=== PATIENT | male | born 1945 | race Caucasian/White ===

== ENCOUNTER 2017-12-11 10:47 | Day surgery (SDC) | payer MEDICARE, OTHER ==
[2017-12-09 15:26] VITALS: BMI 26.4
[~2017-12-11 10:47] MED LIST: ALPRAZolam 0.25 MG TAB PO PRN; ASPIRIN 325 MG TAB PO ONE; NITROGLYCERIN SL TABS 0.4 MG TAB SUBLINGUAL PRN; SODIUM CHLORIDE 0.9% 1,000 ML in EMPTY BAG 1 BAG IV ONE
[2017-12-11 11:30] LABS: Basophils # (A) 0.1 k/uL (0-0.2); Basophils % (A) 1 %; Eosinophils # (A) 0.1 k/uL (0-0.7); Eosinophils % (A) 3 %; HCT 46.8 % (39.0-53.0); HGB 16.4 gm/dL (13.0-17.5); Lymphocytes # (A) 0.8 k/uL (1.0-4.8); Lymphocytes % (A) 19 %; MCV 85.8 fL (80.0-100.0); Mean Platelet Volume 8.7; Monocytes # (A) 0.4 k/uL (0-1.0); Monocytes % (A) 9 %; Neutrophils % (A) 66 %; Platelet Count 143 k/uL (150-450); RBC 5.46 m/uL (4.30-5.90); RDW 13.6 % (11.5-15.5); WBC 4.5 k/uL (3.8-10.6)
[2017-12-11 11:45] LABS: Potassium 4.4 mmol/L (3.5-5.1)
[2017-12-11] MEDS ORDERED: fentaNYL (PF) 50 MCG/ML 2 ML AMP ONE (11:48)
[2017-12-11] MEDS ORDERED: LIDOCAINE 2% INJ 20 MG/ML (20 ML MDV) ONE (11:48)
[2017-12-11] MEDS ORDERED: MIDAZOLAM 2 MG/2 ML VIAL ONE (11:48)
[2017-12-11] MEDS ORDERED: VERAPAMIL 2.5 MG/ML 2 ML AMP ONE (12:21)
[2017-12-11] MEDS ORDERED: fentaNYL (PF) 50 MCG/ML 2 ML AMP IV ONE (12:23)
[2017-12-11] MEDS ORDERED: MIDAZOLAM 2 MG/2 ML VIAL IV ONE (12:24)
[2017-12-11] MEDS ORDERED: LIDOCAINE 2% INJ 20 MG/ML SQ ONE (12:27)
[2017-12-11] MEDS ORDERED: VERAPAMIL SYRINGE (5 MG/10 ML) INTRAARTER ONE (12:34)
[2017-12-11] MEDS ORDERED: HEPARIN SODIUM 1,000 UN/ML (10ML VL) ONE (12:35)
[2017-12-11] MEDS ORDERED: HEPARIN SODIUM 1,000 UN/ML (10ML VL) IV ONE (12:38)
[2017-12-11] MEDS ORDERED: BIVALIRUDIN BOLUS 250 MG/50 ML IV ONE (13:18)
[2017-12-11] MEDS ORDERED: BIVALIRUDIN 250 MG in SODIUM CHLORIDE 0.9% 40 ML IV ONE (13:20)
[2017-12-11] MEDS: NITROGLYCERIN 1000MCG/10ML SYRINGE INTRACORON ONE ×2 (13:35→13:36)
[2017-12-11] MEDS ORDERED: CLOPIDOGREL 75 MG TAB ONE (13:38)
[2017-12-11] MEDS ORDERED: CLOPIDOGREL 75 MG TAB PO ONE (13:42)
[2017-12-11] MEDS ORDERED: IOHEXOL 350 MG/ML 125ML BOTTLE INJ ONE (13:52)
[2017-12-11] MEDS ORDERED: MAG HYDROX/AL HYDROX/SIMETH 30 ML CUP PO PRN (13:53)
[2017-12-11] MEDS ORDERED: RX INFO: IV CONTRAST WAS GIVEN 1 EACH MISC MISCELLANE PRN (13:53)
[2017-12-11] MEDS ORDERED: ZOLPIDEM 5 MG TAB PO PRN (13:53)
[2017-12-11] MEDS ORDERED: ATROPINE SULFATE 0.1 MG/ML 10ML SYRINGE IV PRN (13:53)
[2017-12-11] MEDS ORDERED: IBUPROFEN 800 MG TAB PO PRN (14:37)
[2017-12-11] MEDS: SODIUM CHLORIDE 0.9% 1,000 ML IV SCH (14:38)
[2017-12-11] MEDS: METOPROLOL TARTRATE 12.5 MG TAB PO SCH (20:52)
[2017-12-11] MEDS ORDERED: ATORVASTATIN 80 MG TAB PO SCH (21:00)
--- NOTE | 2017-12-11 22:31 | PTCA ---
PERCUTANEOUSTRANS CORORONARY ANGIOGRAPHY DATE OF SERVICE: 12/11/2017 PROCEDURE: Percutaneous transluminal coronary angioplasty and stenting of proximal circumflex coronary artery with a drug-eluting stent. PERFORMED BY: Dr. Kaitlyn Ramos ANESTHESIA: Moderate conscious sedation time was 25 minutes. Patient was given a combination of Versed and Benadryl and his oxygen saturation and vital signs were monitored very closely. CLINICAL INFORMATION: Mr. Dawson Coffman is a 72-year-old gentleman who was seen and evaluated by Dr. Patel with an abnormal stress test and underwent cardiac cath which revealed a subtotal or probably a chronic total occlusion of mid RCA with bridging collaterals with some competitive flow coming from circumflex. However, proximal circumflex was a nondominant vessel, but there was a long 70% to 80% lesion. He was advised intervention of the circumflex, and I would stage the RCA, which may be a technically difficult procedure, given the chronicity of the lesion. This was explained to the patient as well as the risks, benefits and options, and I then proceeded to perform the procedure. The patient had a cardiac cath from the right radial approach. PROCEDURE NOTE: The existing 6-Luxembourgish introducer in the right radial artery was used to perform the procedure. I used an XB3.5 guide catheter to cannulate the left coronary artery. With some curve on a BMW wire, I tried to advance into the circumflex vessel which came off at a 90-degree angle. I had some difficulty with the wire. I switched over to a run- through wire with a steep curve, and with this I was able to leave the wire in the distal circumflex marginal. Pre-dilatation was performed with a 2.25 caliber 20 mm long NC Trek balloon. I then deployed a 2.5 caliber 23 mm long Xience stent with excellent angiographic result. The patient had chest discomfort and also precordial ST depression. He received 600 mg of Plavix, and also Angiomax and bolus infusion was given. Excellent angiographic result without complication was achieved. The TR band was taken out as per protocol. Saturation in the fingers of the right hand was 94%. Results were discussed with the patient as well as his and son. He was sent to the room in stable condition. Excellent angiographic result without complication was achieved. MMODL / IJN: [id number] /
[2017-12-12] MEDS: SODIUM CHLORIDE 0.9% 1,000 ML IV SCH (05:29)
[2017-12-12 06:26] LABS: Basophils % (A) 1 %; Eosinophils # (A) 0.1 k/uL (0-0.7); Eosinophils % (A) 3 %; HCT 45.6 % (39.0-53.0); HGB 14.8 gm/dL (13.0-17.5); Lymphocytes # (A) 1.6 k/uL (1.0-4.8); Lymphocytes % (A) 33 %; MCH 28.3 pg (25.0-35.0); MCHC 32.5 g/dL (31.0-37.0); MCV 87.3 fL (80.0-100.0); Mean Platelet Volume 9.5; Monocytes # (A) 0.5 k/uL (0-1.0); Monocytes % (A) 11 %; Neutrophils # (A) 2.4 k/uL (1.3-7.7); Neutrophils % (A) 50 %; Platelet Count 139 k/uL (150-450); RBC 5.22 m/uL (4.30-5.90); RDW 13.7 % (11.5-15.5); WBC 4.8 k/uL (3.8-10.6)
[2017-12-12 06:49] LABS: Calcium 9.3 mg/dL (8.4-10.2); Potassium 4.5 mmol/L (3.5-5.1)
[2017-12-12 07:54] VITALS: BP 161/83; PULSE 52; RESP 14; TEMP 98.4
[2017-12-12] MEDS ORDERED: LISINOPRIL 5 MG TAB PO SCH (09:00)
[2017-12-12] MEDS ORDERED: ASPIRIN 81 MG PO SCH (09:00)
[2017-12-12] MEDS ORDERED: CLOPIDOGREL 75 MG TAB PO SCH (09:00)
[2017-12-12] MEDS ORDERED: ISOSORBIDE MONONITRATE ER 15 MG TAB PO SCH (09:00)
[2017-12-12] MEDS ORDERED: MAGNESIUM OXIDE 400 MG TAB PO SCH (09:00)
--- NOTE | 2017-12-12 09:00 | P.DS ---
Providers Date of admission: 12/11/2017 Attending physician: Tanisha Patel Consults: 12/11/17 13:53 Consult Physician Routine Consulting Provider: [facility] Consult Reason/Comments: Post Interventional patient Do you want consulting provider notified?: Already Contacted Primary care physician: Leticia Crespo - Discharge Diagnosis(es) (1) Crescendo angina Current Visit: Yes Status: Acute (2) Positive cardiac stress test Current Visit: Yes Status: Acute (3) Family history of ischemic heart disease Current Visit: Yes Status: Acute (4) Status post coronary artery stent placement Current Visit: Yes Status: Acute Hospital Course: This is 72-year-old gentleman was brought in for cardiac catheterization because of crescendo angina and positive stress test. He was found to have total occlusion of the or near total occlusion of the RCA with distal RCA being filled by collaterals. He also found to have significant disease involving the proximal circumflex. The LAD was free of occlusive disease. Patient had stent placement of the circumflex by Dr. ANNALISA Ramos. Patient tolerated the procedure well. The procedure was done from the right radial approach. The puncture sites seems to be stable without any hematoma. Radial pulses are intact. Patient is feeling much better. He is tolerating activity. His blood pressure is running high. I may start him on also on lisinopril along with beta kendall. Patient is started on aspirin and Plavix. Patient is instructed that he should not stop the dual antiplatelet agents for 1 year. Patient will be seen in the office in about one week time. Patient is given usual postintervention instructions Plan - Discharge Summary Discharge Rx Participant: No New Discharge Prescriptions: New Atorvastatin Calcium [Lipitor] 80 mg PO DAILY #90 tablet Clopidogrel Bisulfate [Plavix] 75 mg PO DAILY #90 tab No Action Isosorbide Mononitrate [Isosorbide Mononitrate ER] 15 mg PO DAILY Metoprolol Tartrate 12.5 mg PO BID Ascorbic Acid [Vitamin C] 1,000 mg PO DAILY Multivitamins, Thera [Multivitamin (formulary)] 1 tab PO DAILY Aspirin [Adult Low Dose Aspirin EC] 81 mg PO DAILY Magnesium Oxide 400 mg PO DAILY Ibuprofen [Motrin] 800 mg PO Q6HR PRN PRN Reason: Pain Discharge Medication List Ascorbic Acid [Vitamin C] 1,000 mg PO DAILY 12/09/17 [History] Aspirin [Adult Low Dose Aspirin EC] 81 mg PO DAILY 12/09/17 [History] Isosorbide Mononitrate [Isosorbide Mononitrate ER] 15 mg PO DAILY 12/09/17 [ History] Magnesium Oxide 400 mg PO DAILY 12/09/17 [History] Metoprolol Tartrate 12.5 mg PO BID 12/09/17 [History] Multivitamins, Thera [Multivitamin (formulary)] 1 tab PO DAILY 12/09/17 [History ] Ibuprofen [Motrin] 800 mg PO Q6HR PRN 12/11/17 [History] Atorvastatin Calcium [Lipitor] 80 mg PO DAILY #90 tablet 12/12/17 [Rx] Clopidogrel Bisulfate [Plavix] 75 mg PO DAILY #90 tab 12/12/17 [Rx] Follow up Appointment(s)/Referral(s): Tanisha Patel MD [STAFF PHYSICIAN] - 12/25/17 2:30 pm (No morning appointments available. Dr. Patel rounding in hospital that week.) Patient Instructions/Handouts: Heart Healthy Diet (DC), Coronary Intravascular Stent Placement (DC), After Radial Heart Catheterization (GEN) Discharge Disposition: HOME SELF-CARE
[2017-12-12] MEDS: METOPROLOL TARTRATE 12.5 MG TAB PO SCH (09:13)
[2017-12-12] MEDS ORDERED: ASCORBIC ACID 500 MG TAB PO SCH (12:00)
[2017-12-12] MEDS ORDERED: MULTIVITAMINS, THERA 1 EACH TAB PO SCH (12:00)
--- NOTE | 2017-12-13 17:11 | P.PCN ---
Date of Procedure: 12/11/17 Preoperative Diagnosis: Positive stress test and crescendo angina Postoperative Diagnosis: 2 vessel disease Procedure(s) Performed: Left heart catheterization without left ventriculography Description of Procedure: HISTORY: This is a 72-year-old gentleman who is been having intermittent chest pains and left arm pains. He was evaluated by stress correlation study which showed partially reversible defect in the inferolateral wall and ischemic changes on the EKGs associated with chest pain. Patient is advised to have a cardiac catheterization for definitive diagnosis. CONSENT:I have discussed the risks, benefits and alternative therapies for the above-mentioned procedure and for both sedation/analgesia as well as necessary blood product administration, if indicated, as they pertain to this patient. The patient has indicated understanding and acceptance of the risks and procedures discussed. PROCEDURE: Patient was brought to the lab in a fasting state. Patient was given some IV sedation. The right wrist is infiltrated with lidocaine and right radial artery was entered using Seldinger technique. A 6-Luxembourgish catheter was left in place and selective coronary arteriography was performed. Patient tolerated the procedure well. Patient went on to have TR band for hemostasis, after patient had stent placement of the circumflex coronary artery by Dr. ANNALISA Ramos. No immediate complications were noted and patient was transferred to [facility] in a stable condition Conscious Sedation: Versed 1 mg Fentanyl 50 g Duration 27 minutes HEMODYNAMICS: . The aortic pressure was about 110/70. Left ankle end- diastolic pressure is about 10-15. There was no gradient across the aortic valve SELECTIVE CORONARY ARTERIOGRAPHY: LEFT MAIN: This is a moderate caliber vessel and short. It divides into LAD and circumflex and is coronary artery and a small intermediate branch. Left main is free of occlusive disease THE LEFT ANTERIOR DESCENDING CORONARY ARTERY: . This is a good caliber vessel giving rise to several septal and diagonal branches which are small. There is a moderate caliber diagonal branch which has mild disease. THE LEFT CIRCUMFLEX AND IS CORONARY ARTERY: This is a moderate caliber vessel and dominant. This has diffuse disease involving the proximal segment extending to the mid segment with areas of 90% stenosis. Distally he did use ice to PLV branch and an AV groove segment. There are collaterals from the circumflex to the right coronary artery THE RIGHT CORONARY ARTERY: This is a moderate caliber vessel which she seemed to be probably near totally occluded occluded in midportion. There are collaterals with ipsilaterally and also contralaterally supplying the distal RCA. LEFT VENTRICULOGRAPHY: Not performed FINAL IMPRESSION: Significant 2 vessel disease with critical lesion involving the long segment of the proximal to mid circumflex and a near total occlusion of the mid RCA. The LAD seems to be free of any significant occlusive disease PLAN: Dr. ANNALISA Ramos is stenting the circumflex. Staged stenting of the RCA to be planned PROGNOSIS: Fair
== END 2017-12-12 10:00 | disposition home or self-care (01) ==
LOC: CATHCVL 10:47 → 6SEL 13:41 → CATHCVL 12-12 10:00
PROVIDERS: ATTEND Internal Medicine Cardiovascular Disease
DX: I25.110 Atherosclerotic heart disease of native coronary artery with unstable angina pectoris (principal); I25.82 Chronic total occlusion of coronary artery; R94.39 Abnormal result of other cardiovascular function study; Z82.49 Family history of ischemic heart disease and other diseases of the circulatory system; Z87.891 Personal history of nicotine dependence; K21.9 Gastro-esophageal reflux disease without esophagitis; E78.1 Pure hyperglyceridemia; E78.00 Pure hypercholesterolemia, unspecified; Z79.82 Long term (current) use of aspirin; Z79.899 Other long term (current) drug therapy
CPT/HCPCS: 93458; 80048 ×2; 85025 ×2; C9600; C1769 ×6; C1894 ×2; C1725; C1887; C1874; J2001; J2250; J3010; J1644; J0583; Q9967

== ENCOUNTER → 2018-01-07 | Outpatient (CLI) | payer MEDICARE, OTHER ==
[2018-01-07 10:18] LABS: ALT 43 U/L (21-72); AST 23 U/L (17-59); Cholesterol 99 mg/dL (<200); HDL Cholesterol 43 mg/dL (40-60); LDL Cholesterol,Calculated 28 mg/dL (0-99); Triglycerides 138 mg/dL (<150)
== END | disposition home or self-care (01) ==
LOC: LABWHC1 09:29
PROVIDERS: ATTEND Internal Medicine Cardiovascular Disease
DX: E78.5 Hyperlipidemia, unspecified (principal); I25.10 Atherosclerotic heart disease of native coronary artery without angina pectoris
CPT/HCPCS: 36415; 80061; 84450; 84460

== ENCOUNTER → 2020-07-04 | Outpatient (CLI) | payer MEDICARE ==
--- NOTE | 2020-07-04 08:59 | US ---
EXAMINATION TYPE: US duplex aorta DATE OF EXAM: 07/04/2020 COMPARISON: CT CLINICAL HISTORY: F17.211 NICOTINE DEPENDANCE. Nicotine dependance EXAM MEASUREMENTS: Abdominal Aorta: Proximal: 2.4 x 2.8 cm Mid: 2.3 x 2.5 cm Distal: 2.0 x 2.1 cm Bifurcation: Obscured by overlying bowel gas Ectatic aorta without evidence of AAA, proximal portion upper limits of normal Incidental finding multiple cysts within left lobe, largest= 3.6 x 2.8 x 3.9 cm IMPRESSION: Ectasia of the abdominal aorta without evidence for aneurysm at this time.
== END | disposition home or self-care (01) ==
LOC: RADUSWWP 08:03
PROVIDERS: ATTEND Family Medicine
DX: I77.811 Abdominal aortic ectasia (principal); F17.211 Nicotine dependence, cigarettes, in remission
CPT/HCPCS: 93979

== ENCOUNTER → 2020-07-04 | Outpatient (CLI) | payer MEDICARE ==
[2020-07-04 09:32] LABS: Basophils # (A) 0.1 k/uL (0-0.2); Basophils % (A) 1 %; Eosinophils # (A) 0.2 k/uL (0-0.7); Eosinophils % (A) 3 %; HCT 50.4 % (39.0-53.0); HGB 16.9 gm/dL (13.0-17.5); Lymphocytes # (A) 1.4 k/uL (1.0-4.8); Lymphocytes % (A) 27 %; MCH 30.5 pg (25.0-35.0); MCHC 33.5 g/dL (31.0-37.0); MCV 90.9 fL (80.0-100.0); Mean Platelet Volume 9.5; Monocytes # (A) 0.3 k/uL (0-1.0); Monocytes % (A) 6 %; Neutrophils # (A) 3.2 k/uL (1.3-7.7); Neutrophils % (A) 60 %; Platelet Count 155 k/uL (150-450); RBC 5.54 m/uL (4.30-5.90); RDW 13.5 % (11.5-15.5); WBC 5.3 k/uL (3.8-10.6)
[2020-07-04 18:05] LABS: Albumin 4.1 g/dL (3.80-4.90); Albumin/Globulin Ratio 2.28 (1.60-3.17); Bilirubin, Conjugated 0.2 mg/dL (0.20-0.40); Bilirubin,Unconjugated 0.4 mg/dL; Chol/HDL Ratio 2.92; Globulin 1.8 g/dL (1.6-3.3); LDL Cholesterol,Calculated 60.8 mg/dL (0.0-131.0); Total Bilirubin 0.6 mg/dL (0.2-1.2); Total Protein 5.9 g/dL (6.2-8.2); VLDL Calculation 35.2 mg/dL (5.00-40.00)
[2020-07-05 01:51] LABS: ALT 63 U/L (10-49); AST 40 U/L (14-35)
== END | disposition home or self-care (01) ==
LOC: LABWHC1 08:56
PROVIDERS: ATTEND Nurse Practitioner Family
DX: I25.10 Atherosclerotic heart disease of native coronary artery without angina pectoris (principal); E78.00 Pure hypercholesterolemia, unspecified; B35.4 Tinea corporis
CPT/HCPCS: 36415; 80061; 80076; 84450; 84460; 85025

== ENCOUNTER 2020-08-01 09:29 | Day surgery (SDC) | payer MEDICARE ==
[2020-07-28 16:34] VITALS: BMI 27.1
[~2020-08-01 09:29] MED LIST changes: -ALPRAZolam 0.25 MG TAB PO PRN; -ASPIRIN 325 MG TAB PO ONE; +LACTATED RINGERS 1,000 ML IV SCH; +LIDOCAINE 1% (10MG/ML) FOR IV START INTRADERMA PRN; -NITROGLYCERIN SL TABS 0.4 MG TAB SUBLINGUAL PRN; -SODIUM CHLORIDE 0.9% 1,000 ML in EMPTY BAG 1 BAG IV ONE
[2020-08-01 09:59] VITALS: RESP 16; TEMP 98
[2020-08-01] MEDS ORDERED: LIDOCAINE 1% INJ 10MG/ML (20 ML MDV) ONE (10:07)
[2020-08-01] MEDS ORDERED: GLYCOPYRROLATE 0.2 MG/ML 2 ML VIAL ONE (10:07)
[2020-08-01] MEDS ORDERED: PROPOFOL 10 MG/ML 20 ML VIAL IV ONE (10:07)
--- NOTE | 2020-08-01 10:25 | P.PCN ---
Date of Procedure: 08/01/20 Procedure(s) Performed: Preoperative Dx: GERD, dysphagia Postoperative Dx: Gastritis, small paraesophageal hernia, erosive distal esophagitis, short segment Staton's esophagus Procedure: EGD with Bx Anesthesia: Sedation Endoscopist: Dr. Reyes Specimens: Antrum, distal esophagitis Endoscopic Procedure: The patient was on the endoscopy table in the left decubitus position. The Olympus gastroscope was inserted into the oropharynx and passed under direct visualization to the region of the third portion of the duodenum. From that point the scope was slowly withdrawn inspecting all surfaces carefully. There were no neoplastic inflammatory or polypoid lesions throughout the duodenum. The pylorus was widely patent. The stomach was carefully inspected. There was gastritis present in the antrum and prepyloric region. A biopsy of the antrum took place to rule out H. pylori. Retroflexion revealed a small paraesophageal hernia, the neck of the hernia was approximately 1-1.5 cm. The esophagus was then carefully examined. There was significant inflammatory changes of the distal esophagus noted. Esophagitis with circumferential erosive. There was a plaque there. There were linear erosions extending 3 cm above the Z line. There was also short segment of Staton's esophagus measuring approximately 1.5 cm above the diaphragmatic hiatus. Biopsies of the distal esophagus took place. The mid and proximal esophagus appeared normal. There was no significant stricture formation or narrowing noted. The patient was then taken to the recovery room in stable condition per anesthesia guidelines. Recommendations: Begin antiacid therapy. Recommend short-term follow-up EGD 6 months.
[2020-08-01 10:39] VITALS: BP 148/90; PULSE 66
== END 2020-08-01 11:25 | disposition home or self-care (01) ==
LOC: ORWHC2ENDO 09:29
PROVIDERS: ATTEND Surgery
DX: K21.00 Gastro-esophageal reflux disease with esophagitis, without bleeding (principal); K44.9 Diaphragmatic hernia without obstruction or gangrene; K22.70 Barrett's esophagus without dysplasia; K29.50 Unspecified chronic gastritis without bleeding; M62.08 Separation of muscle (nontraumatic), other site; K08.89 Other specified disorders of teeth and supporting structures; E78.1 Pure hyperglyceridemia; I10 Essential (primary) hypertension; E78.5 Hyperlipidemia, unspecified; Z79.899 Other long term (current) drug therapy; Z79.02 Long term (current) use of antithrombotics/antiplatelets; Z79.82 Long term (current) use of aspirin; Z95.5 Presence of coronary angioplasty implant and graft; Z87.891 Personal history of nicotine dependence
CPT/HCPCS: 88305; 43239; J2001; J2704